=== PATIENT | female | born 1985 | race Caucasian/White ===

== ENCOUNTER 2022-09-23 15:20 | Outpatient (CLI) | payer BC | END 2022-09-23 15:21 | disposition home or self-care (01) | LOC: CSHMAMMO 15:20 | PROVIDERS: ATTEND Obstetrics & Gynecology | DX: Z12.31 Encounter for screening mammogram for malignant neoplasm of breast (principal) | CPT/HCPCS: 77063; 77067 ==

== ENCOUNTER 2023-12-01 12:26 | Outpatient (CLI) | payer BC | END 2023-12-01 12:27 | disposition home or self-care (01) | LOC: CSHMAMMO 12:26 | PROVIDERS: ATTEND Nurse Practitioner Family | DX: Z12.31 Encounter for screening mammogram for malignant neoplasm of breast (principal); Z80.3 Family history of malignant neoplasm of breast | CPT/HCPCS: 77063; 77067 ==